=== PATIENT | male | born 1935 | race Caucasian/White ===

== ENCOUNTER → 2016-09-19 | Outpatient (CLI) | payer MEDICARE, OTHER | END | disposition home or self-care (01) | LOC: CFH 07:44 | PROVIDERS: ATTEND Internal Medicine | DX: M50.31 Other cervical disc degeneration, high cervical region (principal); M50.321 Other cervical disc degeneration at C4-C5 level; M50.322 Other cervical disc degeneration at C5-C6 level; M48.02 Spinal stenosis, cervical region; M25.78 Osteophyte, vertebrae | CPT/HCPCS: 72141 ==

== ENCOUNTER → 2017-09-22 | Outpatient (CLI) | payer MEDICARE, OTHER ==
[~2017-09-22] MED LIST: ASPI-621 PO; ATEN25TA PO; ATOR10TA PO; CHOL10002 PO; DEXA4TAB PO; LISI1TAB5 PO; OMEG1CAP6 PO; [UNRECOGNIZED DRUG - OTHER] PO
[2017-09-22 11:54] LABS: BASOPHILS # (AUTO) 0.02 x10^3/uL (0-0.1); BASOPHILS % (AUTO) 0 % (0-1); EOSINOPHILS # (AUTO) 0.05 x10^3/uL (0-0.4); EOSINOPHILS % (AUTO) 1 % (1-7); LYMPHOCYTES # (AUTO) 1.32 x10^3/uL (1-3.4); LYMPHOCYTES % (AUTO) 24 % (22-44); MD NO; MEAN CORPUSCULAR HEMOGLOBIN 31.4 pg (27.5-34.5); MEAN CORPUSCULAR HGB CONC 34.1 g/dL (33.2-36.2); MEAN CORPUSCULAR VOLUME 92.1 fL (81-97); MEAN PLATELET VOLUME 7.1 fL (7.4-10.4); MONOCYTES # (AUTO) 0.58 x10^3/uL (0.2-0.8); MONOCYTES % (AUTO) 10 % (2-9); NEUTROPHILS % (AUTO) 65 % (42-75); PLATELET COUNT 235 x10^3/uL (130-400); RED BLOOD COUNT 4.39 x10^6/uL (4.38-5.82)
[2017-09-22 11:56] LABS: MICROSCOPIC NOT IND
[2017-09-22 12:02] LABS: CULTURE INDICATED? NO; INTERNATIONAL NORMALIZED RATIO 1.05 (0.93-1.1); PROTHROMBIN TIME 10.8 Seconds (9.6-11.5)
[2017-09-22 12:05] LABS: ALBUMIN 3.6 g/dL (3.4-5.0); ANION GAP 4 mmol/L (5-15); CHLORIDE 108 mmol/L (98-107)
[2017-09-22 12:22] LABS: ALANINE AMINOTRANSFERASE 37 U/L (12-78); ALKALINE PHOSPHATASE 59 U/L (45-117); BILIRUBIN,TOTAL 0.7 mg/dL (0.2-1.0); CREATININE 1.07 mg/dL (0.7-1.3); TOTAL PROTEIN 6.2 g/dL (6.4-8.2)
== END | disposition home or self-care (01) ==
LOC: STAR 10:25
PROVIDERS: ATTEND Neurological Surgery
DX: Z01.818 Encounter for other preprocedural examination (principal); R94.31 Abnormal electrocardiogram [ECG] [EKG]; M51.86 Other intervertebral disc disorders, lumbar region
CPT/HCPCS: 36415; 71046; 80053; 81003; 85025; 85610; 85730; 93005

== ENCOUNTER 2017-09-30 06:51 | Day surgery (SDC) | payer MEDICARE, OTHER ==
[~2017-09-30] VITALS: Ht 172.7 cm; Wt 86.3 kg
[~2017-09-30 06:51] MED LIST changes: +BACITRACIN 50,000 UNIT ONE; +HEPARIN 1,000 UNITS/ML, 30ML ONE; +THROMBIN 20,000 UNIT VIAL TP ONE
[2017-09-30 07:39] VITALS: BP 150/89
[2017-09-30] MEDS ORDERED: LACTATED RINGERS 1,000 ML IV SCH (07:43)
[2017-09-30] MEDS ORDERED: GABAPENTIN 300 MG CAPSULE PO ONE (08:00)
[2017-09-30] MEDS ORDERED: ONDANSETRON ODT 8 MG PO ONE (08:00)
[2017-09-30] MEDS ORDERED: OXYcodone IR 5MG TABLET PO ONE (08:00)
[2017-09-30] MEDS ORDERED: ACETAMINOPHEN 500 MG TABLET PO ONE (08:00)
[2017-09-30] MEDS ORDERED: CEFAZOLIN 1,000 MG ONE ×2 (09:17)
[2017-09-30] MEDS ORDERED: PROPOFOL 10 MG/ML, 20ML ONE (09:17)
[2017-09-30] MEDS ORDERED: DEXAMETHASONE 4 MG/ML, 1ML ONE (09:17)
[2017-09-30] MEDS ORDERED: ROCURONIUM 10MG/ML,5ML ONE (09:17)
[2017-09-30] MEDS ORDERED: FENTANYL PF 100 MCG/2ML ONE (09:18)
[2017-09-30] MEDS ORDERED: ONDANSETRON 2MG/ML, 2ML ONE (09:29)
[2017-09-30] MEDS ORDERED: GLYCOPYRROLATE 0.2MG/1ML, 5ML ONE (09:29)
[2017-09-30] MEDS ORDERED: NEOSTIGMINE 1 MG/ML, 10ML ONE (09:29)
[2017-09-30] MEDS ORDERED: METOPROLOL 1 MG/ML, 5ML IV PRN (10:00)
[2017-09-30] MEDS ORDERED: DIAZEPAM 5 MG/ML, 2ML IVPush PRN (10:00)
[2017-09-30] MEDS ORDERED: FENTANYL PF 100 MCG/2ML IV PRN (10:00)
[2017-09-30] MEDS ORDERED: EPHEDRINE 50 MG/ML, 1ML IVPush PRN (10:00)
[2017-09-30] MEDS ORDERED: OXYcodone 5 MG/5 ML ORAL.SOL UDC PO PRN (10:00)
[2017-09-30] MEDS ORDERED: ONDANSETRON ODT 8 MG PO PRN (10:00)
[2017-09-30] MEDS ORDERED: hydrALAzine 20 MG/ML, 1ML IV PRN (10:00)
[2017-09-30] MEDS ORDERED: MORPHINE SULFATE 4 MG/ML, 1ML IVPush PRN (10:00)
[2017-09-30] MEDS ORDERED: ALBUTEROL SULFATE 2.5 MG/3 ML NPPB PRN (10:00)
[2017-09-30] MEDS ORDERED: LABETALOL 5MG/ML, 20ML IV PRN (10:00)
[2017-09-30] MEDS ORDERED: PROMETHAZINE 25 MG/ML, 1ML IV PRN (10:00)
[2017-09-30] MEDS ORDERED: BUPIVACAINE/PF 0.5% INFIL ONE (10:02)
[2017-09-30] MEDS ORDERED: THROMBIN 5,000 UNIT VIAL TP ONE (10:02)
[2017-09-30] MEDS ORDERED: EPINEPHRINE 1 MG/ML, 1ML INFIL ONE (10:03)
[2017-09-30] MEDS ORDERED: VANCOMYCIN 1,000 MG IM ONE (10:04)
[2017-09-30] MEDS ORDERED: VANCOMYCIN 1,000 MG ONE (11:04)
[2017-09-30] MEDS ORDERED: BUPIVACAINE/PF 0.5% ONE (11:04)
== END 2017-09-30 14:04 ==
LOC: OUT 06:51
PROVIDERS: ATTEND Neurological Surgery
DX: M51.16 Intervertebral disc disorders with radiculopathy, lumbar region (principal); M48.061 Spinal stenosis, lumbar region without neurogenic claudication; Z98.890 Other specified postprocedural states; Z85.46 Personal history of malignant neoplasm of prostate; I10 Essential (primary) hypertension; Z79.82 Long term (current) use of aspirin
CPT/HCPCS: 63030; 63056; 63057; 72100; J0171; J0690; J1100; J2405; J2704; J2710; J3010; J3370; J3490; J7120; Q0162; J1644